=== PATIENT | female | born 1955 | race Caucasian/White ===

== ENCOUNTER → 2017-10-15 | Emergency (ER) | payer OTHER ==
[2017-02-05 17:46] VITALS: BP 159/100; PULSE 64; TEMP 36.7; O2SAT 98
[~2017-10-15] MED LIST: CALCCAP17 PO; CLON0.1D7 TD; CLR10 PO; CYAN1TAB18 PO; GABA-113 PO; GLC500 PO; HYDR25TA4 PO; INSDGI SC; LEVO50TA PO; LISI-461 PO; OXYC15TA89 PO; THIA1TAB PO
== END ==
LOC: EDUNIT# 18:08 → EDSEX 18:15 → EDBD 18:15 → EDUNIT# 18:20 → C.EDC 18:20

== ENCOUNTER 2024-06-21 11:18 | Observation (INO) ==
--- NOTE | 2024-02-01 12:43 | PAT Medication Instructions ---
Medication Instructions Date of Service February 01, 2024 Home Medications gabapentin 300 mg capsule 300 mg PO TID levothyroxine 50 mcg tablet 50 mcg PO QAM loratadine 10 mg tablet (Allergy Relief (loratadine)) 10 mg PO QAM amlodipine 10 mg tablet (Norvasc) 10 mg PO QAM insulin detemir U-100 100 unit/mL subcutaneous solution (Levemir U-100 Insulin) 12 unit subcut HS pantoprazole 40 mg tablet,delayed release (Protonix) 40 mg PO QAM metoprolol succinate 100 mg tablet,extended release 24 hr 100 mg PO HS cholecalciferol (vitamin D3) 125 mcg (5,000 unit) capsule 125 mcg PO QAM hydrochlorothiazide 25 mg tablet 25 mg PO QAM hydroxyzine HCl 50 mg tablet 50 mg PO BID PRN insulin lispro 100 unit/mL subcutaneous pen (Humalog KwikPen (U-100) Insulin) 4 unit subcut TID sertraline 25 mg tablet (Zoloft) 50 mg PO QAM sumatriptan succinate 50 mg tablet See Rx Instructions PO .COMPLEX albuterol sulfate 90 mcg/actuation aerosol inhaler 1 inh inhalation QID PRN cholestyramine (with sugar) 4 gram powder for susp in a packet 4 g PO QAM docusate sodium 100 mg capsule (Colace) 100 mg PO BID PRN latanoprost 0.005 % eye drops 1 drp ophthalmic (eye) HS oxycodone 15 mg tablet 15 mg PO TID PRN Continue as directed sumatriptan succinate 50 mg tablet See Rx Instructions PO .COMPLEX STOP taking 48 hours before surgery cholestyramine (with sugar) 4 gram powder for susp in a packet 4 g PO QAM DO NOT take the morning of surgery loratadine 10 mg tablet (Allergy Relief (loratadine)) 10 mg PO QAM cholecalciferol (vitamin D3) 125 mcg (5,000 unit) capsule 125 mcg PO QAM hydrochlorothiazide 25 mg tablet 25 mg PO QAM insulin lispro 100 unit/mL subcutaneous pen (Humalog KwikPen (U-100) Insulin) 4 unit subcut TID docusate sodium 100 mg capsule (Colace) 100 mg PO BID PRN Take morning of surgery With a small sip of water, OTHERWISE NOTHING TO EAT OR DRINK AFTER MIDNIGHT: gabapentin 300 mg capsule 300 mg PO TID levothyroxine 50 mcg tablet 50 mcg PO QAM amlodipine 10 mg tablet (Norvasc) 10 mg PO QAM pantoprazole 40 mg tablet,delayed release (Protonix) 40 mg PO QAM hydroxyzine HCl 50 mg tablet 50 mg PO BID PRN(if needed) sertraline 25 mg tablet (Zoloft) 50 mg PO QAM albuterol sulfate 90 mcg/actuation aerosol inhaler 1 inh inhalation QID PRN(use if needed; please bring with you to hospital day of surgery if possible) oxycodone 15 mg tablet 15 mg PO TID PRN(if needed) Take evening before surgery gabapentin 300 mg capsule 300 mg PO TID insulin detemir U-100 100 unit/mL subcutaneous solution (Levemir U-100 Insulin) 12 unit subcut HS metoprolol succinate 100 mg tablet,extended release 24 hr 100 mg PO HS hydroxyzine HCl 50 mg tablet 50 mg PO BID PRN(if needed) insulin lispro 100 unit/mL subcutaneous pen (Humalog KwikPen (U-100) Insulin) 4 unit subcut TID albuterol sulfate 90 mcg/actuation aerosol inhaler 1 inh inhalation QID PRN(if needed) docusate sodium 100 mg capsule (Colace) 100 mg PO BID PRN(if needed) latanoprost 0.005 % eye drops 1 drp ophthalmic (eye) HS oxycodone 15 mg tablet 15 mg PO TID PRN(if needed) Other Notes If you have any questions please call us at [phone] or [phone] or [phone] or [phone]
--- NOTE | 2024-02-04 13:37 | Anesthesiology Consultation ---
Date of Service February 04, 2024 Assessment & Plan (1) Encounter for pre-operative examination: Chart Review Chart Review: Pending: Refer to Additional Notes / Consult section (pending surgeon/PCP response regarding Hgb A1C/PCP office visit 02/07/24) and Patient seen in Pre Admission Testing - Awaiting PCP office visit (scheduled 02/07/24)- Sandra HOWARD- please fax optimization form regarding uncontrolled DM and preop testing to PCP for review (will need a response) - Check BSG AM DOS Per PAT appt on 02/04/24, no recent illness/disease exposures, illness related symptoms, or recent illness/disease positive tests. Will leave to surgeon's discretion if preop Covid testing needed Cystoscopy, Ureteronephroscopy, Retrograde Pyelogram, Possible Ureteral Dilation, Laser Destruction or Extraction of the Stone, Right Insertion or Exchange of Stent Catheter 07/11/20= Done under [place] with LMA #4. Atraumatic Teaching & Discussion Pre-Anesthesia Teaching/Discussion Notes: Instructed NPO after midnight before surgery,except medications with 15 cc of water. Medication instructions provided according to the PAT guidelines. History Surgery Operation Date: 02/23/24 11:20 Proposed Procedures p Right Shoulder Arthroscopic Revision Subacromial Decompression Revision Distal Clavicle Excision, Excision Heterotropic Bone Acromioclaviular Joint, Rotator Cuff Repair with [employer] - Tim Fuentes MD Height/Weight Height: 5 ft 7 in Weight: 82.7 kg Allergies Allergy/AdvReac Type Severity Reaction Status Date / Time acetaminophen AdvReac Intermediate GI upset Verified 02/04/24 13:51 aspirin AdvReac Mild GI UPSET Verified 02/01/24 10:38 ibuprofen AdvReac Mild HX KIDNEY Verified 03/19/23 15:12 DISEASE latex AdvReac Mild contact Verified 02/01/24 10:38 dermatitis salicylates AdvReac Mild GI UPSET Verified 02/01/24 10:38 Medications Home Medications Medication Instructions Recorded Confirmed Last Taken gabapentin 300 mg capsule 300 mg PO TID 04/21/18 02/01/24 07/10/20 23:55 levothyroxine 50 mcg tablet 50 mcg PO QAM 04/21/18 02/01/24 07/10/20 06:00 loratadine 10 mg tablet (Allergy 10 mg PO QAM 08/15/18 02/01/2407/11/21 06:00 Relief (loratadine)) amlodipine 10 mg tablet (Norvasc) 10 mg PO QAM 04/03/20 02/01/24 07/11/20 06:00 insulin detemir U-100 100 unit/mL 12 unit subcut HS 05/08/20 02/01/24 07/10/20 21:00 subcutaneous solution (Levemir U-100 Insulin) pantoprazole 40 mg tablet,delayed 40 mg PO QAM 05/08/20 02/01/24 07/11/20 06:00 release (Protonix) metoprolol succinate 100 mg 100 mg PO HS 07/09/20 02/01/24 07/10/20 23:55 tablet,extended release 24 hr cholecalciferol (vitamin D3) 125 125 mcg PO QAM 10/15/21 02/01/24 Unknown mcg (5,000 unit) capsule hydrochlorothiazide 25 mg tablet 25 mg PO QAM 10/15/21 02/01/24 Unknown hydroxyzine HCl 50 mg tablet 50 mg PO BID PRN anxiety 10/15/21 02/01/24 Unknown insulin lispro 100 unit/mL 4 unit subcut TIDM 10/15/21 02/01/24 Unknown subcutaneous pen (Humalog KwikPen (U-100) Insulin) sertraline 25 mg tablet (Zoloft) 50 mg PO QAM 10/15/21 02/01/24 Unknown sumatriptan succinate 50 mg tablet See Rx Instructions PO .COMPLEX 10/15/21 02/01/24 Unknown albuterol sulfate 90 mcg/actuation 1 inh inhalation QID PRN sob 02/01/24 02/01/24 Unknown aerosol inhaler cholestyramine (with sugar) 4 gram 4 g PO QAM 02/01/24 02/01/24 Unknown powder for susp in a packet docusate sodium 100 mg capsule 100 mg PO BID PRN Constipation 02/01/24 02/01/24 Unknown (Colace) latanoprost 0.005 % eye drops 1 drp ophthalmic (eye) HS 02/01/24 02/01/24 Unknown oxycodone 15 mg tablet 15 mg PO TID PRN Pain 02/01/24 02/01/24 Unknown Past Medical History Medical History Bronchial asthma uses rescue inhaler every night; use nebulizer TID as directed stable currently Chronic back pain Chronic insomnia Chronic obstructive pulmonary disease requires 4l oxygen at hs CKD (chronic kidney disease) stage 3; follows with nephrology in [facility] Diabetes mellitus, type 2 GERD (gastroesophageal reflux disease) well controlled and stable Glaucoma History of kidney stones Hyperlipidemia Hypertension Hypothyroidism IBS (irritable bowel syndrome) Migraine On home oxygen therapy 4L at HS CHUCKIE (obstructive sleep apnea) Diagnosed >20 years ago- no device Peripheral neuropathy Poor historian Sacroiliitis TMJ (temporomandibular joint syndrome) b/l; no locking Exercise / Class Metabolic Activity II 4-5 Yardwork/Stairs/Walk up hill (one flight of stairs- no chest pain or SOB ) Past Family History Family History Other No family history of adverse response to anesthesia No family history of bleeding disorder No significant family history Past Surgical History Surgical History Fusion of spine cervical and lumbar *around 1999, pt unsure of details History of cervical discectomy History of cholecystectomy History of colonoscopy History of cystoscopy 07/11/20 cysto, laser litho [facility]; LMA#4 atraumatic History of hernia repair 09/23/2015 [facility] History of tooth extraction History of total abdominal hysterectomy History of trigger finger Past Anesthesia History No Hx of Anesthesia Complications and No Family Hx of Anesthesia Complications History of PONV No Hx of PONV and No Hx of Motion Sickness Social History Smoking Status: Current every day smoker tobacco type: cigarettes Smoking cigarettes per day: 4 cigs per day>advised (quit smoking a couple days a go) Do You Dip or Chew Tobacco: No Hx Alcohol Use: No substance use type: does not use and prescription drug Review of Systems - Occ wheezing/coughing secondary to bronchial asthma - Snoring- hx of sleep study (20 years)- mild CHUCKIE- no device Patient denies chest pain, shortness of breath, dyspnea on exertion, cough, wheezing, palpitations. No hx of seizures, stroke, HI. No hx of blood clots or blood transfusions Physical Exam Vital Signs VITALS BP 104/59 P 66 TEMP 97.6 SP02 92% on RA RESP 16 Constitutional no acute distress ENMT Mouth: no TMJ clicking Thyromental Distance: > or= 3.5 Finger Breadths (4.0) Mallampati Class: II Missing all teeth Neck + limited neck extension Respiratory normal respiratory effort; no respiratory distress Auscultation: no wheezes Course breath sounds throughout Breath sounds diminished throughout Cardiovascular Rate/Rhythm: regular rate and regular rhythm Heart Sounds: no murmur Vessels: no carotid bruit Heart sounds mildly diminished throughout Musculoskeletal Spine: no pain with cervical ROM Extremities: extremities normal to inspection Psychiatric Orientation: alert Lab Results Anesthesia Preop Results Results Anesthesia Widget: WBC 6.23 K/ul (4.8-10.8) 02/04/24 Hgb 13.8 g/dl (12.0-16.0) 02/04/24 Hct 42.7 % (37.0-47.0) 02/04/24 Plt 201 K/uL (130-400) 02/04/24 Na 134 mmol/L (136-145) L 02/04/24 K 3.6 mmol/L (3.5-5.1) 02/04/24 Cl 90 mmol/L (98-107) L 02/04/24 CO2 35 mmol/L (21-32) H 02/04/24 BUN 22 mg/dl (6-23) 02/04/24 Creat 1.30 mg/dl (0.6-1.2) H 02/04/24 Glucose Level 329 mg/dl (70-99(Fasting)) H* 02/04/24 PT 11.0 Seconds (9.0-12.0) 02/04/24 PTT 26 Seconds (21-31) 02/04/24 INR 1.0 (0.9-1.1) 02/04/24 HA1c 10.4 % (4.5-5.6) H 02/04/24 Urine Color Dark Yellow 02/04/24 Urine Appearance Turbid (Clear) A 02/04/24 Urine pH 5.0 (4.5-7.5) 02/04/24 Urine Specific [place] 1.031 (1.000-1.030) H 02/04/24 Urine Protein 3+ (Negative) H 02/04/24 Urine Glucose (UA) Trace (Negative) H 02/04/24 Urine Ketones 1+ (Negative) H 02/04/24 Urine Blood Negative (Negative) 02/04/24 Urine Nitrite Negative (Negative) 02/04/24 Urine Bilirubin 2+ (Negative) H 02/04/24 Urine Urobilinogen Negative (Negative) 02/04/24 Urine Leukocyte Esterase 1+ (Negative) H 02/04/24 Urine WBC (Auto) 6-10 /hpf (0-5) H 02/04/24 Urine RBC (Auto) 3-5 /hpf (0-2) H 02/04/24 Urine Hyaline Casts (Auto) 3-5 /lpf (0-2) H 02/04/24 Urine Epithelial Cells (Auto) >20 /hpf (0-2) H 02/04/24 Urine Bacteria (Auto) 4+ (None Seen) H 02/04/24 Blood Type B Positive 02/04/24 Antibody Screen NEGATIVE 02/04/24 Testing Laboratory Results Elevated Hgb A1C/uncontrolled DM- surgeon's office informed/optimization letter sent to PCP to address at 02/07/24 office visit Surgeon's office informed of UA results - will leave to surgeon's discretion on how to proceed Electrocardiogram Date: 11/16/23 SR RBBB Compared to trace dated 04/02/23, vent rate has decreased, atrial enlargement criteria are no longer present Chest X-Ray Date: 02/04/24 FINDINGS: Lung volumes are normal. Linear right middle lobe densities favor atelectasis or scarring. There is no pneumothorax or pleural effusion. Cardiac size is stable. Mediastinal contours are normal. There is no evidence for pulmonary edema. IMPRESSION: 1. No acute cardiopulmonary findings. 2. Linear right middle lobe densities suggestive of atelectasis or scarring. Echocardiogram Date: 11/07/19 EF: 60% LV Function: normal RWMA: + none Other Findings: no LVH or no diastolic dysfunction Valvular Disease: + no significant valvular disease Ascending aorta is mildly dilated at 38mm Other Testing Cervical spine CT 04/02/2023 = no acute fracture in the cervical spine. Cervical spondyloarthropathy and facetal arthropathic changes from C3-C7 levels. Vertebral body fusion from C5-C7 levels. Grade 1 anterolisthesis of C3 over C4 and C4 over C5
--- NOTE | 2024-06-12 12:34 | PAT Medication Instructions ---
Medication Instructions Date of Service June 12, 2024 Home Medications gabapentin 300 mg capsule 300 mg PO TID levothyroxine 50 mcg tablet 50 mcg PO QAM loratadine 10 mg tablet (Allergy Relief (loratadine)) 10 mg PO QAM amlodipine 10 mg tablet (Norvasc) 10 mg PO QAM pantoprazole 40 mg tablet,delayed release (Protonix) 40 mg PO QAM cholecalciferol (vitamin D3) 125 mcg (5,000 unit) capsule 125 mcg PO QAM hydrochlorothiazide 25 mg tablet 25 mg PO QAM hydroxyzine HCl 50 mg tablet 50 mg PO BID PRN anxiety insulin lispro 100 unit/mL subcutaneous pen (Humalog KwikPen (U-100) Insulin) 18 unit subcut TIDM sumatriptan succinate 50 mg tablet 50 mg PO UD PRN migraines albuterol sulfate 90 mcg/actuation aerosol inhaler 1 inh inhalation QID PRN sob docusate sodium 100 mg capsule (Colace) 100 mg PO BID PRN Constipation latanoprost 0.005 % eye drops 1 drp ophthalmic (eye) HS oxycodone 15 mg tablet 15 mg PO TID PRN Pain semaglutide 0.25 mg or 0.5 mg (2 mg/3 mL) subcutaneous pen injector (Ozempic) 0.25 mg subcut Q7D DO NOT take the morning of surgery loratadine 10 mg tablet (Allergy Relief (loratadine)) 10 mg PO QAM cholecalciferol (vitamin D3) 125 mcg (5,000 unit) capsule 125 mcg PO QAM hydrochlorothiazide 25 mg tablet 25 mg PO QAM hydroxyzine HCl 50 mg tablet 50 mg PO BID PRN anxiety insulin lispro 100 unit/mL subcutaneous pen (Humalog KwikPen (U-100) Insulin) 18 unit subcut TIDM docusate sodium 100 mg capsule (Colace) 100 mg PO BID PRN Constipation Take morning of surgery With a small sip of water, OTHERWISE NOTHING TO EAT OR DRINK AFTER MIDNIGHT: gabapentin 300 mg capsule 300 mg PO TID levothyroxine 50 mcg tablet 50 mcg PO QAM amlodipine 10 mg tablet (Norvasc) 10 mg PO QAM pantoprazole 40 mg tablet,delayed release (Protonix) 40 mg PO QAM sumatriptan succinate 50 mg tablet 50 mg PO UD PRN migraines (if needed) albuterol sulfate 90 mcg/actuation aerosol inhaler 1 inh inhalation QID PRN sob (use if needed; please bring rescue inhaler with you to hospital day of surgery if possible) oxycodone 15 mg tablet 15 mg PO TID PRN Pain (if needed) Take evening before surgery gabapentin 300 mg capsule 300 mg PO TID hydroxyzine HCl 50 mg tablet 50 mg PO BID PRN anxiety (if needed) insulin lispro 100 unit/mL subcutaneous pen (Humalog KwikPen (U-100) Insulin) 18 unit subcut TIDM sumatriptan succinate 50 mg tablet 50 mg PO UD PRN migraines (if needed) albuterol sulfate 90 mcg/actuation aerosol inhaler 1 inh inhalation QID PRN sob (if needed) docusate sodium 100 mg capsule (Colace) 100 mg PO BID PRN Constipation (if needed) latanoprost 0.005 % eye drops 1 drp ophthalmic (eye) HS oxycodone 15 mg tablet 15 mg PO TID PRN Pain (if needed) STOP 7 days prior to surgery semaglutide 0.25 mg or 0.5 mg (2 mg/3 mL) subcutaneous pen injector (Ozempic) 0.25 mg subcut Q7D Other Notes If you have any questions please call us at [phone] or [phone] or [phone] or [phone]
--- NOTE | 2024-06-19 13:46 | Anesthesiology Consultation ---
Date of Service June 19, 2024 Assessment & Plan (1) Encounter for pre-operative examination: Chart Review Chart Review: Acceptable Risk for Surgery and Patient NOT seen in Pre Admission Testing - Check BSG AM DOS - Coags to anesthesiologist's discretion DOS (due to PNB; coags WNL 02/04/24) Spoke with patient 06/19/24- states diabetes has been much better controlled since starting Ozempic- checks sugars 3 times daily- glucose has not been >200 since starting Ozempic. Patient currently working/following with PCP for diabetes management (Attempted to add A1C to preop labs- unable to; PCP has no recent Hgb A1cs) - Ozempic instructions: Patient informed by PAT nursing to stop 7 days prior to surgery. Patient advised by PAT nursing to check with prescriber to see if alternative diabetic management changes recommended while holding Ozempic - if so, patient to call back to PAT to update chart and discuss if any further preop medication instructions needed. Last dose of Ozempic was 06/12/24- will be off Ozempic x 9 days by DOS on 06/21/24 -Infectious Disease screening: Per PAT nursing assessment on 06/08/24. No known infectious disease contacts in past 10 days or current infectious disease symptoms. No recent travel outside the country. Patient seen by PCP 06/15/24= Patient presents for follow up. Having shoulder and neck pain. Plan is for shoulder surgery next Wednesday. Would like adjustment to pain medication. UDS completed. Oxycodone refilled. Patient to follow up after surgery. Cystoscopy, Ureteronephroscopy, Retrograde Pyelogram, Possible Ureteral Dilation, Laser Destruction or Extraction of the Stone, Right Insertion or Exchange of Stent Catheter 07/11/20= Done under [place] with LMA #4. Atraumatic History Surgery Operation Date: 02/23/24 13:30 Proposed Procedures p Right Shoulder Arthroscopic Revision Subacromial Decompression Revision Distal Clavicle Excision, Excision Heterotropic Bone Acromioclaviular Joint, Rotator Cuff Repair with [employer] - Tim Fuentes MD Operation Date: 06/21/24 13:40 Proposed Procedures p Right Shoulder Arthroscopy with Revision Subacromial Decompression, Revision Distal Clavicle Excision, Excision Heterotopic Bone Acromioclavicular Joint, Rotator Cuff Repair with [employer] - Tim Fuentes MD Height/Weight Height: 5 ft 7 in Weight: 81.647 kg Allergies Allergy/AdvReac Type Severity Reaction Status Date / Time acetaminophen AdvReac Intermediate GI upset Verified 06/08/24 13:14 aspirin AdvReac Mild GI UPSET Verified 06/08/24 13:14 ibuprofen AdvReac Mild HX KIDNEY Verified 06/08/24 13:14 DISEASE latex AdvReac Mild contact Verified 06/08/24 13:14 dermatitis salicylates AdvReac Mild GI UPSET Verified 06/08/24 13:14 Medications Home Medications Medication Instructions Recorded Confirmed Last Taken gabapentin 300 mg capsule 300 mg PO TID 04/21/18 06/08/24 07/10/20 23:55 levothyroxine 50 mcg tablet 50 mcg PO QAM 04/21/18 06/08/24 07/10/20 06:00 loratadine 10 mg tablet (Allergy 10 mg PO QAM 08/15/18 06/08/24 07/11/20 06:00 Relief (loratadine)) amlodipine 10 mg tablet (Norvasc) 10 mg PO QAM 04/03/20 06/08/24 07/11/20 06:00 pantoprazole 40 mg tablet,delayed 40 mg PO QAM 05/08/20 06/08/24 07/11/20 06:00 release (Protonix) cholecalciferol (vitamin D3) 125 125 mcg PO QAM 10/15/21 06/08/24 Unknown mcg (5,000 unit) capsule hydrochlorothiazide 25 mg tablet 25 mg PO QAM 10/15/21 06/08/24 Unknown hydroxyzine HCl 50 mg tablet 50 mg PO BID PRN anxiety 10/15/21 06/08/24 Unknown insulin lispro 100 unit/mL 18 unit subcut TIDM 10/15/21 06/08/24 Unknown subcutaneous pen (Humalog KwikPen (U-100) Insulin) sumatriptan succinate 50 mg tablet 50 mg PO UD PRN migraines 10/15/21 06/08/24 Unknown albuterol sulfate 90 mcg/actuation 1 inh inhalation QID PRN sob 02/01/24 06/08/24 Unknown aerosol inhaler docusate sodium 100 mg capsule 100 mg PO BID PRN Constipation 02/01/24 06/08/24 Unknown (Colace) latanoprost 0.005 % eye drops 1 drp ophthalmic (eye) HS 02/01/24 06/08/24 Unknown oxycodone 15 mg tablet 15 mg PO TID PRN Pain 02/01/24 06/08/24 Unknown semaglutide 0.25 mg or 0.5 mg (2 0.25 mg subcut Q7D 06/08/24 06/08/24 Unknown mg/3 mL) subcutaneous pen injector (Ozempic) Past Medical History Medical History Bronchial asthma uses rescue inhaler every night; use nebulizer TID as directed stable currently Chronic back pain Chronic insomnia Chronic obstructive pulmonary disease requires 4l oxygen at hs CKD (chronic kidney disease) stage 3; no longer seeing f/u nephrology in [place], "looking for a new one" Depression Diabetes mellitus, type 2 IDDM GERD (gastroesophageal reflux disease) well controlled and stable Glaucoma History of kidney stones Hyperlipidemia Hypertension Hypothyroidism IBS (irritable bowel syndrome) Migraine CHUCKIE (obstructive sleep apnea) Diagnosed >20 years ago- no device Peripheral neuropathy Poor historian Sacroiliitis hx TMJ (temporomandibular joint syndrome) b/l; no locking Past Family History Family History Other No family history of adverse response to anesthesia No family history of bleeding disorder No significant family history Past Surgical History Surgical History Fusion of spine cervical and lumbar *around 1999, pt unsure of details History of cervical discectomy History of cholecystectomy History of colonoscopy History of cystoscopy 07/11/20 cysto, laser litho [facility]; LMA#4 atraumatic History of hernia repair 09/23/2015 [facility] History of tooth extraction History of total abdominal hysterectomy History of trigger finger S/P ORIF (open reduction internal fixation) fracture 03/14/24, left hip-IM nailing, ph noel Social History Smoking Status: Former smoker tobacco type: cigarettes Smoking cigarettes per day: 4 cigs per day>advised (quit smoking a couple days ago) Do You Dip or Chew Tobacco: No Smoking End Date: 03/14/24 Hx Alcohol Use: No Hx Substance Use: No substance use type: does not use Lab Results Anesthesia Preop Results Results Anesthesia Widget: WBC 6.88 K/ul (4.8-10.8) 06/16/24 Hgb 13.8 g/dl (12.0-16.0) 06/16/24 Hct 42.2 % (37.0-47.0) 06/16/24 Plt 222 K/uL (130-400) 06/16/24 Na 137 mmol/L (136-145) 06/16/24 K 4.2 mmol/L (3.5-5.1) 06/16/24 Cl 99 mmol/L (98-107) 06/16/24 CO2 34 mmol/L (21-32) H 06/16/24 BUN 20 mg/dl (6-23) 06/16/24 Creat 0.74 mg/dl (0.6-1.2) 06/16/24 Glucose Level 151 mg/dl (70-99(Fasting)) H 06/16/24 Testing Electrocardiogram Date: 06/16/24 Findings: + NSR @ (81bpm) RBBB When compared to EKG from Apr 03, 2020- PACs are no longer present, QT has lengthened per cardio Chest X-Ray Date: 02/04/24 FINDINGS: Lung volumes are normal. Linear right middle lobe densities favor atelectasis or scarring. There is no pneumothorax or pleural effusion. Cardiac size is stable. Mediastinal contours are normal. There is no evidence for pulmonary edema. IMPRESSION: 1. No acute cardiopulmonary findings. 2. Linear right middle lobe densities suggestive of atelectasis or scarring. Echocardiogram Date: 11/07/19 EF: 60% LV Function: normal RWMA: + none Other Findings: no LVH or no diastolic dysfunction Valvular Disease: + no significant valvular disease Ascending aorta is mildly dilated at 38mm Other Testing Cervical spine CT 04/02/2023 = no acute fracture in the cervical spine. Cervical spondyloarthropathy and facetal arthropathic changes from C3-C7 levels. Vertebral body fusion from C5-C7 levels. Grade 1 anterolisthesis of C3 over C4 and C4 over C5
--- NOTE | 2024-06-20 20:45 | History & Physical Report ---
Date of Service June 20, 2024 Assessment & Plan (1) Tendinopathy of right rotator cuff: Plan: Chronic right shoulder pain. Factors causing pain include rotator cuff tendinopathy with bursitis and subacromial impingement and chronic inflammation AC joint despite subacromial decompression with heterotopic ossification AC joint. Patient's had chronic pain and was previously scheduled for surgery but had to be postponed due to high A1c which is improved at this time. Plan is to proceed with revision subacromial decompression with chronic navicular joint debridement/revision distal clavicle excision with excision heterotopic ossification and likely repair of rotator cuff tendinopathy with Regeneten bio inductive type I collagen implant. (2) Subacromial impingement of right shoulder: (3) Osteoarthritis of right acromioclavicular joint: History of Present Illness Primary Care Provider: LEE Alvarez Patient denies headaches, sweats, fevers, chills, double vision, blurred vision, cough, sore throat, dysphagia, chest pain, sob, wheezing, n/v/d/c, numbness, tingling, fatigue, urinary symptoms. ROS positive for extremity numbness shortness of breath with running ,arthritis throughout the spine. Allergies Allergy/AdvReac Type Severity Reaction Status Date / Time acetaminophen AdvReac Intermediate GI upset Verified 06/08/24 13:14 aspirin AdvReac Mild GI UPSET Verified 06/08/24 13:14 ibuprofen AdvReac Mild HX KIDNEY Verified 06/08/24 13:14 DISEASE latex AdvReac Mild contact Verified 06/08/24 13:14 dermatitis salicylates AdvReac Mild GI UPSET Verified 06/08/24 13:14 Home Medications Medication Instructions Recorded Confirmed Type gabapentin 300 mg capsule 300 mg PO TID 04/21/18 06/08/24 History levothyroxine 50 mcg tablet 50 mcg PO QAM 04/21/18 06/08/24 History loratadine 10 mg tablet (Allergy 10 mg PO QAM 08/15/18 06/08/24 History Relief (loratadine)) amlodipine 10 mg tablet (Norvasc) 10 mg PO QAM 04/03/20 06/08/24 History pantoprazole 40 mg tablet,delayed 40 mg PO QAM 05/08/20 06/08/24 History release (Protonix) cholecalciferol (vitamin D3) 125 125 mcg PO QAM 10/15/21 06/08/24 History mcg (5,000 unit) capsule hydrochlorothiazide 25 mg tablet 25 mg PO QAM 10/15/21 06/08/24 History hydroxyzine HCl 50 mg tablet 50 mg PO BID PRN anxiety 10/15/21 06/08/24 History insulin lispro 100 unit/mL 18 unit subcut TIDM 10/15/21 06/08/24 History subcutaneous pen (Humalog KwikPen (U-100) Insulin) sumatriptan succinate 50 mg tablet 50 mg PO UD PRN migraines 10/15/21 06/08/24 History albuterol sulfate 90 mcg/actuation 1 inh inhalation QID PRN sob 02/01/24 06/08/24 History aerosol inhaler docusate sodium 100 mg capsule 100 mg PO BID PRN Constipation 02/01/24 06/08/24 History (Colace) latanoprost 0.005 % eye drops 1 drp ophthalmic (eye) HS 02/01/24 06/08/24 History oxycodone 15 mg tablet 15 mg PO TID PRN Pain 02/01/24 06/08/24 History semaglutide 0.25 mg or 0.5 mg (2 0.25 mg subcut Q7D 06/08/24 06/08/24 History mg/3 mL) subcutaneous pen injector (Ozempic) Past Med/Surg History Problem List (Updated 06/20/24 @ 20:43 by Tim Fuentes MD) Osteoarthritis of right acromioclavicular joint Tendinopathy of right rotator cuff Subacromial impingement of right shoulder ETD (eustachian tube dysfunction) Sensorineural hearing loss (SNHL) of both ears Lesion of colon Irritable bowel syndrome with diarrhea Family history of colon cancer GERD (gastroesophageal reflux disease) Early satiety Abnormal brain MRI (Acute) Pt denies Arthritis (Acute) Asthma (Acute) Back pain (Acute) Chronic headaches (Acute) Chronic insomnia (Acute) Chronic pain syndrome (Acute) Combined conductive hearing loss (Acute) Degeneration of intervertebral disc of cervical region (Acute) Eczema (Acute) Glaucoma (Acute) Hyperlipidemia (Acute) Encounter for pre-operative examination Hypertension Opioid dependence chronic back pain Herniated cervical disc (Chronic) Diabetes (Chronic) IDDM Left lateral ankle pain (Acute) Varicose veins (Acute) Medical History CHUCKIE (obstructive sleep apnea) Diagnosed >20 years ago- no device History of kidney stones Diabetes mellitus, type 2 IDDM Hypothyroidism Peripheral neuropathy Migraine Hyperlipidemia Hypertension Bronchial asthma uses rescue inhaler every night; use nebulizer TID as directed stable currently Poor historian CKD (chronic kidney disease) stage 3; no longer seeing f/u nephrology in [place], "looking for a new one" Sacroiliitis hx TMJ (temporomandibular joint syndrome) b/l; no locking Chronic insomnia IBS (irritable bowel syndrome) Glaucoma Chronic back pain GERD (gastroesophageal reflux disease) well controlled and stable Depression Chronic obstructive pulmonary disease requires 4l oxygen at hs Surgical History S/P ORIF (open reduction internal fixation) fracture 03/14/24, left hip-IM nailing, ph [place] History of tooth extraction History of cystoscopy 07/11/20 cysto, laser litho [facility]; LMA#4 atraumatic History of hernia repair 09/23/2015 [facility] History of cervical discectomy History of total abdominal hysterectomy Fusion of spine cervical and lumbar *around 1999, pt unsure of details History of trigger finger History of cholecystectomy History of colonoscopy Family History Other No family history of adverse response to anesthesia No family history of bleeding disorder No significant family history Social History Smoking Status: Former smoker Tobacco Type: Cigarettes Age Started Using Tobacco: 40; Cigarettes Per Day: 4 cigs per day>advised (quit smoking a couple days ago); Smoking End Date: 03/14/24; Second Hand Exposure: Yes; Do You Dip or Chew Tobacco: No; Tobacco Cessation Education Requested by Patient: No Hx Alcohol Use: No Hx Substance Use: No Preferred Language: Honduran Communication Ability: Effective Brand Engineer Required: No Beliefs That Will Affect Care: None marital status: Single Current Living Situation: Family Current Living Situation Comment: lives with son current occupational status: unemployed Other Information That Helps Us Care for You: No Feels Safe at Home: Yes Safety Concerns: Feels Safe At This Time Assistive Devices: Cane and Walker Review of Systems All systems reviewed & are unremarkable except as noted in HPI & below Physical Exam Constitutional: WD/WN, vitals as above Respiratory: normal respiratory effort; no respiratory distress Cardiovascular: Rate/Rhythm: regular rate and regular rhythm Musculoskeletal: Right shoulder old surgical scars positive impingement signs and cross body adduction pain with active and passive painful range of motion 160 degrees flexion 140 degrees abduction 70 degrees internal rotation 85 degrees external rotation. Strength is decreased and neurovascular exam intact otherwise. Patient has some limited range of motion left shoulder with history of humerus fracture left shoulder. Skin: no rashes, warm and dry Neurologic: normal touch/pain/proprioception Psychiatric: A+Ox3, euthymic affect Results & Data Diagnostic Findings MRI findings of interstitial tearing of the rotator cuff with tendinopathy with previous decompression distal clavicle excision with some heterotopic ossification in the AC joint and ongoing inflammation in the AC joint with some continued impingement despite previous decompression.
[2024-06-21] MEDS ORDERED: ROCURONIUM BROMIDE 10 MG/ML 5 ML VIAL IV ONE (11:29)
[2024-06-21] MEDS ORDERED: LIDOCAINE 2% 2 ML VIAL/AMP(20MG/ML) INFIL ONE (11:29)
[2024-06-21] MEDS ORDERED: PROPOFOL IV EMULSION 10 MG/ML 20 ML VIAL IV ONE (11:29)
[2024-06-21] MEDS ORDERED: MIDAZOLAM HCL 1 MG/ML 2ML VIAL ONE (11:30)
[2024-06-21] MEDS ORDERED: fentaNYL citrate PF 100 MCG/2 ML VIAL ONE (11:30)
[2024-06-21] MEDS: LR 15ML/HR IV SCH (11:51)
[2024-06-21] MEDS: DEXTROSE 50% 50 ML SYRINGE IV ONE ×3 (11:51→12:55)
[2024-06-21] MEDS: DEXTROSE 5% 500 ML IV SCH (12:20)
[2024-06-21] MEDS: ALBUT/IPRATROP 3MG/0.5MG NEB 3 ML VIAL ONE (12:26)
[2024-06-21] MEDS: ALBUT/IPRATROP 3MG/0.5MG NEB 3 ML VIAL NEB STA (12:28)
[2024-06-21] MEDS ORDERED: BUPIVACAINE 0.25% PF 30 ML VIAL ONE (12:48)
[2024-06-21] MEDS ORDERED: fentaNYL citrate PF 100 MCG/2 ML VIAL IV PRN (13:01)
[2024-06-21] MEDS ORDERED: ONDANSETRON INJ 2 MG/ML 2 ML VIAL IV PRN ×2 (13:01→20:08)
[2024-06-21] MEDS ORDERED: ePHEDrine sulfate 50 MG/ML AMP IV PRN (13:01)
[2024-06-21] MEDS ORDERED: ATROPINE SULFATE 0.1 MG/ML 10ML SYR IV PRN (13:01)
--- NOTE | 2024-06-21 13:01 | History & Physical Bridge Note ---
Date of Service June 21, 2024 History & Physical Bridge Note I have examined the patient, reviewed the History & Physical and in the interval since the performance of the History & Physical I have noted the following changes of clinical significance: no changes noted
[2024-06-21] MEDS: TRANEXAMIC ACID 1,000 MG **IV Pre-op IV SCH (13:43)
[2024-06-21] MEDS: ceFAZolin 2000MG 2,000 MG/15 ML SYR IV SCH ×2 (14:10→21:19)
[2024-06-21] MEDS ORDERED: ePHEDrine sulfate 50 MG/5 ML SYR ONE (14:50)
[2024-06-21] MEDS ORDERED: DEXAMETHASONE SOD INJ 4 MG/ML VIAL ONE (14:50)
[2024-06-21] MEDS ORDERED: PHENYLEPHRINE 100MCG/ML 5ML SYR ONE (14:50)
[2024-06-21] MEDS ORDERED: ONDANSETRON INJ 2 MG/ML 2 ML VIAL ONE (14:50)
[2024-06-21] MEDS ORDERED: SUGAMMADEX SODIUM 200 MG/2 ML VIAL IV ONE (15:30)
[2024-06-21] MEDS: TRANEXAMIC ACID 1,000 MG **IV Intra-op IV SCH (15:31)
[2024-06-21] MEDS: EPINEPHrine HCL INJ 10 MG/10 ML VIAL ONE (15:34)
--- NOTE | 2024-06-21 15:59 | Operative Report ---
Post Operative Report Pre & Post Diagnosis Operation Date: 06/21/24 12:45 Pre-Op Diagnosis: Right Shoulder Impingement, Osteoarthritis of right acromioclavicular joint, rotator cuff tendinopathy with interstitial tearing rotator cuff, subacromial bursitis, heterotopic ossification acromioclavicular joint capsule. Post-Op Diagnosis: Same including significant partial tearing intra-articular rotator cuff subscapularis supraspinatus and infraspinatus with rotator cuff tendinopathy and biceps tendinopathy partial tearing biceps and degenerative glenoid labral tearing and synovitis glenohumeral joint and osteoarthritis glenohumeral joint. I identified the patient and participated in the time-out.: Yes Procedure Operation Date: 06/21/24 12:45 Actual Procedures p Right Shoulder Arthroscopy with rotator cuff repair with Regeneten bio inductive type I collagen implant, revision subacromial decompression, debridement acromioclavicular joint with excision heterotopic bone superior acromioclavicular joint capsule, extensive debridement including rotator cuff subscapularis supraspinatus and infraspinatus, glenoid labral degenerative circumferential tearing, biceps tendon partial tearing, synovium glenohumeral joint, subacromial bursa and bursal side rotator cuff. Biceps tenotomy.- Tim Fuentes MD Surgeon Tim Fuentes MD Gaming Department Head Juanito PINA Estimated Blood Loss 4 Findings Consistent with Post-Op Diagnosis Specimens None Drains None Anesthesia Type General Regional Disposition Disposition: Recovery Room Indications 69-year-old female with several years of ongoing right shoulder pain. She had a history of prior arthroscopic surgery. X-rays demonstrate previous distal clavicle excision and subacromial decompression but MRI demonstrates significant interstitial tearing of the rotator cuff and rotator cuff tendinopathy which was quite significant but no full-thickness tear. Patient had MRI and x-rays in 2022 and was planning on surgery after failed conservative management however this had to be postponed due to medical issues and fractured left shoulder. Description of Procedure The patient was to the operating room anesthetized under regional block and general anesthesia. The patient was positioned on the operating table in the 70 beach chair position. All of the other extremities were well-padded. The right upper extremity was prepped and draped in the usual sterile fashion. Examination demonstrated old scars from prior surgery with normal range of motion.. Arthroscopy of the shoulder was performed via anterior and posterior arthroscopy portals. Posterior portal was placed in the soft spot and the anterior portal was placed in the rotator interval. Subsequent portals included lateral subacromial working portal and anterior and posterior superior lateral incisions for cannulas for staple placement. The following findings were noted: Humeral head had grade III chondromalacia along the majority of the central humeral head with delaminating flaps. Glenoid had some grade 2 and grade III chondromalacia as well. The glenoid labrum was frayed circumferentially significant fraying superiorly and anterior superiorly. Biceps tendon had partial tearing and fraying extending into the upper bicipital groove. There was obvious tendinopathy of the biceps. There was tendinopathy and partial tearing of the intra-articular margin subscapularis. There is undersurface tendinopathy and fraying of the supraspinatus with some thinning of the tendon. There was more significant fraying and tendinopathy of the infraspinatus with substantial undersurface fraying and partial tearing of the infraspinatus without full- thickness tear. There is generalized synovitis in the glenohumeral joint. Subacromial space there is also fraying of the bursal surface of the rotator cuff with marked subacromial bursitis. There is evidence of previous subacromial decompression but there was some new spurs on the lateral side of the acromion and there was recurrent spurring on the inferior acromion which had a lip on it which appeared to be causing impingement issues as the soft tissue was frayed that attach that area. There was a distal clavicle excision which was satisfactory amount of distal clavicle resected but there was a very large piece of heterotopic bone in the anterior superior capsule. There is some generalized fibrinous and scarred bursa and synovial type tissue within the AC joint.. Attention was first taken to using a 4.5 full-radius resector blade to do thorough debridement within the glenohumeral joint. Humeral head was first debrided back to a smoother surface removing all delaminated flaps. The glenoid was then debrided. This was abraded in similar fashion. Labrum was debrided back to stable intact labral tissue the biceps tendon was debrided back to stable intact biceps tissue. The subscapularis supraspinatus and infraspinatus undersurface tearing and tendinopathy was shaved back to better but still tissue with tendinopathy. Partial synovectomy was performed. Radiofrequency ablator was used as needed to coagulate bleeders. It was also used to perform a ten otomy of the biceps which was subsequently mushroomed to help prevent retraction. The subacromial space more extensive debridement performed removing all the inflamed scarred subacromial bursa tissue and the AC joint was debrided of the inflamed scarred synovial and bursal tissues. The heterotopic bone was shelled out with a radiofrequency ablation device and removed with a grasper. Revision decompression performed using a 5.5 bur planing down the new spurs at making a flat type I undersurface of the acromion. Regeneten bio inductive type I collagen implant was then placed over the rotator cuff area tendinopathy. Is a large implant and device that slightly over the infraspinatus where more the tendinopathy had been noted from the intra-articular perspective. The implant was transfixed with multiple PIYUSH rubin with very stable fixation and with passive range of motion the implant was stable and there was no impingement. The portal sites were closed with 2-0 Vicryl subcuticular sutures as well as interrupted nylon sutures. Sterile dressings were applied and a sling immobilizer. The patient tolerated the procedure well. My physician kindergarten teacher assistant Juanito PINA, assisted in arm positioning, instrument management, stabilization of the collagen implant during stapling, incision closure, sling application, and will participate in the postoperative care of the patient. I attest to the content of the Intraoperative Record and any orders documented therein. Any exceptions are noted below.
--- NOTE | 2024-06-21 16:20 | Anesthesiology Progress Note ---
Date of Service June 21, 2024 Anesthesia Post Procedure Vital Signs Vital Signs: Temp Pulse Resp BP Pulse Ox O2 Del Method O2 Flow Rate 06/21/24 12:28 65 1 L 95 Nasal Cannula 2 06/21/24 12:10 Nasal Cannula 2 06/21/24 11:40 36.8 C 72 20 114/78 88 L Room Air Pain Intensity Right Shoulder: Pain Intensity: 7 Transfer of Care Handoff Completed per policy Notes Mental Status: alert / awake / arousable Patient Amnestic to Procedure: Yes Nausea / Vomiting: adequately controlled Pain: adequately controlled Airway Patency, RR, SpO2: stable & adequate BP & HR: stable & adequate Hydration State: stable & adequate Anesthetic Complications: no major complications apparent
[2024-06-21] MEDS ORDERED: PHARMACY GLYCEMIC MGMT CONSULT PRN (20:08)
[2024-06-21] MEDS ORDERED: NALOXONE HCL 0.4 MG/1 ML VIAL/CARP IV PRN (20:08)
[2024-06-21] MEDS ORDERED: NON-FORMULARY MEDICATION (Semaglutide [Ozempic] 0.25 mg or 0.5 mg (2 mg/3 mL) Pen Injector SQ SCH (20:08)
[2024-06-21] MEDS ORDERED: MAGNESIUM HYDROXIDE SUSP 30 ML UDC PO PRN (20:08)
[2024-06-21] MEDS ORDERED: METOCLOPRAMIDE HCL INJ 5 MG/ML 2 ML VIAL IV PRN (20:08)
[2024-06-21] MEDS ORDERED: bisacodyL 10 MG SUPP PR PRN (20:08)
[2024-06-21] MEDS ORDERED: HYDROmorphone INJ 0.5 MG/0.5 ML SYR IV PRN (20:08)
[2024-06-21] MEDS ORDERED: DOCUSATE SODIUM 100 MG CAP PO PRN (20:08)
[2024-06-21] MEDS ORDERED: ALBUTEROL HFA 8 GM INHALER INH PRN (20:08)
[2024-06-21] MEDS ORDERED: SUMAtriptan succinate 50 MG TAB PO PRN (20:08)
[2024-06-21] MEDS ORDERED: ALUMINUM/MAGNESIUM SUSP 30 ML UDC PO PRN (20:08)
[2024-06-21] MEDS ORDERED: NON-FORMULARY MEDICATION (Insulin Lispro [Humalog Kwikpen Insulin] 100 unit/mL insulin pen SQ SCH (20:08)
[2024-06-21] MEDS ORDERED: CARBOHYDRATES FOR HYPOGLYCEMIA PO PRN (20:30)
[2024-06-21] MEDS ORDERED: GLUCOSE 10 TAB/TUBE PO PRN (20:30)
[2024-06-21] MEDS ORDERED: GLUCOSE 40% GEL 15 GM TUBE PO PRN (20:30)
[2024-06-21] MEDS ORDERED: GLUCAGON FOR INJ 1 MG VIAL SQ PRN (20:30)
[2024-06-21] MEDS ORDERED: DEXTROSE 50% 50 ML SYRINGE IV PRN (20:30)
[2024-06-21] MEDS: SENNA 8.6 MG TAB PO SCH (20:42)
[2024-06-21] MEDS: DOCUSATE SODIUM 100 MG CAP PO SCH (20:42)
[2024-06-21] MEDS: GABAPENTIN 300 MG CAP PO SCH (20:42)
[2024-06-21] MEDS: oxyCODONE HCL IR 5 MG TAB (IMMEDIATE RELEASE) PO PRN (20:42)
[2024-06-21] MEDS: INSULIN ASPART PER UNIT CHARGE SC SCH ×2 (20:43→23:44)
[2024-06-21] MEDS: TRANEXAMIC ACID / 0.7% NACL 1,000 MG/100 ML BAG IV SCH (21:18)
[2024-06-21] MEDS: diphenhydrAMINE Capsule 25 MG CAP PO PRN (22:28)
[2024-06-21] MEDS: hydrOXYzine HCl 25 MG TAB PO PRN (23:05)
[2024-06-21] MEDS: LATANOPROST 0.005% OP SOLN 2.5 ML BTL OPB SCH (23:39)
[2024-06-22] MEDS: KETOROLAC TROMETHAMINE 15 MG/ML VIAL IV PRN (04:14)
[2024-06-22] MEDS: LEVOTHYROXINE SODIUM 50 MCG TABLET PO SCH (05:43)
[2024-06-22 07:37] VITALS: PULSE 79
--- NOTE | 2024-06-22 07:56 | Orthopedic Progress Note ---
Date of Service June 22, 2024 Assessment & Plan (1) Tendinopathy of right rotator cuff: Plan: Chronic right shoulder pain. Factors causing pain include rotator cuff tendinopathy with bursitis and subacromial impingement and chronic inflammation AC joint despite subacromial decompression with heterotopic ossification AC joint. Patient's had chronic pain and was previously scheduled for surgery but had to be postponed due to high A1c which is improved at this time. Plan is to proceed with revision subacromial decompression with chronic navicular joint debridement/revision distal clavicle excision with excision heterotopic ossification and likely repair of rotator cuff tendinopathy with Regeneten bio inductive type I collagen implant. Postop day 1 right shoulder Regeneten repair rotator cuff with extensive debridement shoulder tenotomy biceps. Patient would like home physical therapy and health to be set up if possible. Patient can be discharged home today after seen by physical therapy and Occupational Therapy sure she is ambulating safely as she has some balance issues. She will have a sling down the arm and may affect her balance. Will continue with balance therapy in addition to Regeneten protocol therapy for the right shoulder upon discharge (2) Subacromial impingement of right shoulder: (3) Osteoarthritis of right acromioclavicular joint: Admission and Anticipated Discharge Date Admission Date: June 21, 2024 Subjective Having some back pain but shoulder is feeling well and nerve blocks wearing off Review of Systems Review of Systems: No complaints other than some back pain Physical Exam Musculoskeletal: Dressing dry and intact sling intact circulation sensorimotor function returning to hand with normal motor function. Results & Data Vital Signs (Past 12 Hours) Vital Signs Temp Pulse Pulse Resp BP Pulse Ox O2 Del Method 06/22/24 07:36 36.4 C L 79 16 157/77 H 93 Nasal Cannula 06/22/24 00:32 81 14 135/75 89 L Room Air 06/22/24 00:00 36.5 C 80 20 134/77 92 Room Air 06/21/24 20:35 36.5 C 81 20 144/82 H 95 Nasal Cannula 06/21/24 20:00 Nasal Cannula 06/21/24 19:55 36.8 C 75 18 137/76 92 Nasal Cannula O2 Flow Rate 06/22/24 07:36 2 06/22/24 00:32 3 06/22/24 00:00 06/21/24 20:35 2 06/21/24 20:00 3 06/21/24 19:55 3
[2024-06-22] MEDS: MULTIVITAMIN TAB PO SCH (09:06)
[2024-06-22] MEDS: PANTOprazole 40 MG TAB PO SCH (09:06)
[2024-06-22] MEDS: LORATADINE 10 MG TAB PO SCH (09:06)
[2024-06-22] MEDS: hydroCHLOROthiazide 25 MG TAB PO SCH (09:08)
[2024-06-22] MEDS: amLODIPine BESYLATE 5 MG TAB PO SCH (09:08)
[2024-06-22] MEDS: CHOLECALCIFEROL 125 MCG (5,000 UNITS) TAB PO SCH (09:08)
[2024-06-22] MEDS: dexAMETHasone 10 MG in SYRINGE 0 ML IV SCH (09:29)
[2024-06-22 11:39] VITALS: BP 159/85; RESP 18; TEMP 97.7; O2SAT 88
--- NOTE | 2024-06-22 13:23 | Pharmacy Report ---
Pharmacy Glycemic Short Note 2 - Date of Service June 22, 2024 - Glycemic Short BSG Results (Last 24 hours): 06/21/24 06/21/24 06/21/24 14:37 16:00 20:34 POC Glucose 135 H 147 H 171 H 06/21/24 06/22/24 06/22/24 23:34 07:39 11:31 POC Glucose 158 H 140 H 189 H OUTPATIENT ANTIDIABETIC REGIMEN: * Humalog 18 units TIDM, ozempic * A1c 10.4% 02/04/24 ASSESSMENT: * Patient admitted following R shoulder arthroscopy * Hypoglycemic on admission, therefore basal was held initially, fasting 140 mg/dL this morning * Weight/stress 3 novolog parameters- patient received 4 mg IV dex preop and 10 mg Iv Dex this morning- continue PLAN FOR INPATIENT GLYCEMIC CONTROL: * Hold outpatient oral diabetes medications * Basal insulin * Hold * Bolus insulin * NovoLog per scale ACHS or Q6hrs while NPO * Goal Range: Low 120 mg/dL - High 150 mg/dL * Correction Factor: 20 mg/dL/unit * Nutritional / Prandial insulin per carb ratio of 1 unit per 7 grams CHO consumed
--- NOTE | 2024-06-23 09:51 | Discharge Summary ---
Date of Service June 23, 2024 Admission HPI Per Admitting Provider Patient denies headaches, sweats, fevers, chills, double vision, blurred vision, cough, sore throat, dysphagia, chest pain, sob, wheezing, n/v/d/c, numbness, tingling, fatigue, urinary symptoms. ROS positive for extremity numbness shortness of breath with running ,arthritis throughout the spine. Principal Diagnosis Right shoulder rotator cuff tendinopathy Discharge Data Allergies Allergy/AdvReac Type Severity Reaction Status Date / Time acetaminophen AdvReac Intermediate GI upset Verified 06/21/24 12:04 aspirin AdvReac Mild GI UPSET Verified 06/21/24 12:04 ibuprofen AdvReac Mild HX KIDNEY Verified 06/21/24 12:04 DISEASE latex AdvReac Mild contact Verified 06/21/24 12:04 dermatitis salicylates AdvReac Mild GI UPSET Verified 06/21/24 12:04 Procedures Performed Operation Date: 06/21/24 12:45 Actual Procedures p Right Shoulder Arthroscopy with Revision Subacromial Decompression, Revision Distal Clavicle Excision, Excision Heterotopic Bone Acromioclavicular Joint, Ro tator Cuff Repair with Regeneten Biological Implant(Right) - Tim Fuentes MD Ordered Studies 06/21/24 05:00 US - OR guided needle placemen Routine Hospital Course (1) Tendinopathy of right rotator cuff: Chronic right shoulder pain. Factors causing pain include rotator cuff tendinopathy with bursitis and subacromial impingement and chronic inflammation AC joint despite subacromial decompression with heterotopic ossification AC joint. Patient's had chronic pain and was previously scheduled for surgery but had to be postponed due to high A1c which is improved at this time. Plan is to proceed with revision subacromial decompression with chronic navicular joint debridement/revision distal clavicle excision with excision heterotopic ossification and likely repair of rotator cuff tendinopathy with Regeneten bio inductive type I collagen implant. Postop day 1 right shoulder Regeneten repair rotator cuff with extensive debridement shoulder tenotomy biceps. Patient would like home physical therapy and health to be set up if possible. Patient can be discharged home today after seen by physical therapy and Occupational Therapy sure she is ambulating safely as she has some balance issues. She will have a sling down the arm and may affect her balance. Will continue with balance therapy in addition to Regeneten protocol therapy for the right shoulder upon discharge Total Time Total Time Spent Total Time Spent (In Minutes): 20 Discharge Plan Discharge Items Patient Disposition: Home - Home Health Services Reason For Visit: Right Shoulder Impingement, Acromioclavicular Join Discharge Diagnosis: Right shoulder incomplete rotator cuff tear Activity: Per Instructions section Non-emergency contact: Primary Care Provider and Surgeon Call non-emergency contact if: your pain is not controlled, your pain is worsening and your temperature is above 101 Follow-up/Referrals: Sandra Mckeon CRNP [Primary Care Provider] - Diet: Regular Addtl Attending Provider Instructions: [facility] DISCHARGE INSTRUCTIONS: ROTATOR CUFF REPAIR SELF CARE INSTRUCTIONS A. You are permitted to loosen your sling/immobilizer to move your elbow, wrist, and hand to prevent stiffness. You should use your well arm (good arm) to assist the operated extremity when trying to raise the arm away from the body, hygiene purposes. B. You may/may not be instructed to start Physical Therapy upon discharge depending upon the size and difficulty of the repair. You will be provided a prescription for therapy with specific restrictions, if needed, at time of discharge. A physical therapy prescription was placed into your chart and will be in your discharge instructions. Your physical therapist will follow the Regeneten protocol. The protocol will also be attached. C. At 48 hours post-operatively, you may change your dressing. (Leave white steri-strips intact if present). Use band-aids and change daily. You are allowed to shower at this time and get the incision area wet, but DO NOT soak or submerge incision area in water. (No baths, swimming pools, hot tubs) D. Do NOT apply soap or any ointment/lotions directly over incision. E. You may use ice as needed to operative shoulder. F. You may return to previous diet. SPECIAL CARE INSTRUCTIONS: VERY IMPORTANT TO READ AND REVIEW A. There are a few signs you need to watch for after you are home. Call [facility] at [phone] if you experience any of the following: a. Increased severe shoulder pain. Some pain is expected especially when you exercise b. Increased swelling in your shoulder or arm; pain or swelling in either upper extremity. (Note: swelling and stiffness is normal and expected for several weeks post op, depending on type of shoulder surgery you had). c. Any fluid or drainage from the incision; redness of the incision. d. Shortness of breath or chest pain. B. Please call [facility] at [phone] if you have any questions or concerns about your operation or recovery. C. Call your physician if: a. Temperature is greater than 101 degrees (F). b. Pain is not relieved by prescribed pain medications. c. Increase drainage or redness from incision. d. Unanswered questions or concerns. D. Pain Medication: a. You will be prescribed pain medication upon discharge that should last till your first post-operative appointment. b. If you experience nausea and/or skin rash, discontinue this medication and contact our office for an alternative medication. c. Caution- narcotic pain medication can cause constipation. FOLLOW UP VISIT: Please call [facility] at [phone] to schedule a follow up appointment 10-14 days from your surgery date. Pending Studies at Discharge: No Stand-Alone Forms: My [facility], Smoking Cessation Medications and [place] Order Prescriptions: New oxycodone 5 mg tablet 10 mg PO Q4H PRN (Reason: pain) Qty: 30 0RF Rx Instructions: Take 10 mg for pain rated 1 through 5. Take 15 mg for pain rated 6 through 10. Do not take your normal oxycodone dose until this prescription is completed. Continued hydroxyzine HCl 50 mg tablet 50 mg PO BID PRN (Reason: anxiety) sumatriptan succinate 50 mg tablet 50 mg PO UD PRN (Reason: migraines) Rx Instructions: take 1 tab at onset of headache; if no relief may repeat 1 tab after at least 2 hrs; max = 4 tabs/24 hr PO hydrochlorothiazide 25 mg tablet 25 mg PO QAM cholecalciferol (vitamin D3) 125 mcg (5,000 unit) capsule 125 mcg PO QAM pantoprazole [Protonix] 40 mg Tablet,Delayed Release (Dr/Ec) 40 mg PO QAM gabapentin 300 mg capsule 300 mg PO TID levothyroxine 50 mcg tablet 50 mcg PO QAM loratadine [Allergy Relief (loratadine)] 10 mg tablet 10 mg PO QAM amlodipine [Norvasc] 10 mg tablet 10 mg PO QAM insulin lispro [Humalog KwikPen Insulin] 100 unit/mL insulin pen 18 unit SUBCUT TIDM Rx Instructions: PER SLIDING SCALE docusate sodium [Colace] 100 mg capsule 100 mg PO BID PRN (Reason: Constipation) albuterol sulfate 90 mcg/actuation Hfa Aerosol Inhaler 1 inh INHALATION QID PRN (Reason: sob) latanoprost 0.005 % Drops 1 drp OPHTHALMIC (EYE) HS Ozempic 0.25 mg or 0.5 mg (2 mg/3 mL) Pen Injector 0.25 mg SUBCUT Q7D Patient Comments: wednesday or Held oxycodone 15 mg Tablet 15 mg PO TID PRN (Reason: Pain) Hold Instructions: Resume on 06/28/24. Admission Data Admit Date/Time: 06/21/24 14:08 Attending Provider: Tim Fuentes Admit Provider: Tim Fuentes Primary Care Provider: Sandra Mckeon Other Providers: [facility]; [facility] Fax Other Interventions: Discharge Summary Assessment (RN) Last Done: 06/22/24 11:49
== END 2024-06-22 13:27 | disposition home health service (06) ==
LOC: ASU 11:18 → PACUINP 11:18 → 3N 20:02
DX: Z87.891 Personal history of nicotine dependence; M75.111 Incomplete rotator cuff tear or rupture of right shoulder, not specified as traumatic; Z79.890 Hormone replacement therapy; M19.011 Primary osteoarthritis, right shoulder; Z88.8 Allergy status to other drugs, medicaments and biological substances; E03.9 Hypothyroidism, unspecified; Z79.85 Long-term (current) use of injectable non-insulin antidiabetic drugs; N18.9 Chronic kidney disease, unspecified; M75.51 Bursitis of right shoulder; Z88.6 Allergy status to analgesic agent; E11.22 Type 2 diabetes mellitus with diabetic chronic kidney disease; K21.9 Gastro-esophageal reflux disease without esophagitis; Z91.040 Latex allergy status; Z79.4 Long term (current) use of insulin; M75.41 Impingement syndrome of right shoulder; J44.9 Chronic obstructive pulmonary disease, unspecified